=== PATIENT | female | born 1970 | race Caucasian/White ===

== ENCOUNTER → 2018-06-09 | Outpatient (CLI) | payer BC ==
--- NOTE | 2018-06-13 13:57 | MM ---
Reason for exam: clinical finding. Last mammogram was performed 1 year ago. History: Patient has history of other cancer at age 38. Took hormonal contraceptives for 6 months beginning at age 29. Physical Findings: Nurse did not find any significant physical abnormalities on exam. MG 3D Diag Mammo W/Cad NATASHA Bilateral CC and MLO view(s) were taken. Prior study comparison: June 11, 2017, mammogram, performed at . The breast tissue is heterogeneously dense. This may lower the sensitivity of mammography. Spiculated density inner upper left breast 6cm from nipple. This finding is changed when compared with previous exams. These results were verbally communicated with the patient on 06/13/18. ASSESSMENT: Incomplete: need additional imaging evaluation, BI-RAD 0 RECOMMENDATION: Special view mammogram of the left breast. If lesion persists on supplemental views, image directed ultrasound is recommended. [facility] will attempt to contact patient to return for supplemental views and ultrasound if indicated.
== END | disposition home or self-care (01) ==
LOC: RADMAMWWP 07:57
PROVIDERS: ATTEND Obstetrics & Gynecology
DX: N64.4 Mastodynia (principal)
CPT/HCPCS: 77062; 77066

== ENCOUNTER → 2018-06-22 | Outpatient (CLI) | payer BC ==
--- NOTE | 2018-06-23 09:40 | MM ---
Reason for exam: additional evaluation requested from abnormal screening. Last mammogram was performed less than 1 month ago. History: Patient has history of other cancer at age 38. Took hormonal contraceptives for 6 months beginning at age 29. Physical Findings: Nurse did not find any significant physical abnormalities on exam. MG 3D Follow Up No Charge LT Spot compression CC, spot compression MLO, and LM view(s) were taken of the left breast. Prior study comparison: June 09, 2018, bilateral MG 3d diag mammo w/cad NATASAH. June 11, 2017, mammogram, performed at [facility]. There is no discrete abnormality including area of concern. These results were verbally communicated with the patient and result sheet given to the patient on 06/22/18. ASSESSMENT: Probably benign, BI-RAD 3 RECOMMENDATION: Follow-up diagnostic mammogram of the left breast in 6 months.
== END | disposition home or self-care (01) ==
LOC: RADMAMWWP 07:05
PROVIDERS: ATTEND Obstetrics & Gynecology
DX: Z53.9 Procedure and treatment not carried out, unspecified reason (principal)

== ENCOUNTER → 2023-02-24 | Outpatient (CLI) | payer BC ==
--- NOTE | 2023-02-24 16:15 | XR ---
EXAMINATION TYPE: XR skull complete DATE OF EXAM: 02/24/2023 4:05 PM INDICATION: Patient age:Female; 52 years old; Reason for study: M25.461; COMPARISON: None. TECHNIQUE: Right views of the skull. FINDINGS: No evidence to suggest radiopaque foreign body. Soft tissues and osseous structures are within norm al limits. IMPRESSION: No evidence of radiopaque foreign body. Consider CT facial bones for further evaluation if there diaz ins concern.
== END | disposition home or self-care (01) ==
LOC: LABWHC1 15:33
PROVIDERS: ATTEND Physician Assistant
DX: M25.461 Effusion, right knee (principal); M23.306 Other meniscus derangements, unspecified meniscus, right knee
CPT/HCPCS: 70260

== ENCOUNTER 2024-08-19 21:41 | Emergency (ER) | payer BC ==
--- NOTE | 2024-08-19 22:05 | ED ---
Lower Extremity Injury HPI - General Source: patient, RN notes reviewed Mode of arrival: wheelchair Limitations: no limitations - History of Present Illness MD Complaint: ankle injury, foot injury Onset/Timin -: hour(s) Time: 19:00 Injury: Ankle: Right, Foot: Right <Joaquin Hood - Last Filed: 08/19/24 22:03> <Olayinka Salmeron - Last Filed: 08/20/24 20:47> - General Stated Complaint: RT ankle pain Time Seen by Provider: 08/19/24 21:56 - History of Present Illness Initial Comments: Quick note: This is a 54-year-old female presenting with right ankle injury/pain (01/30) at 1900 today. Patient states she jumped out of a van, "tweaking her ankle" but not causing her severe headache and pain until later in the day and she began having worsening lateral ankle and heel pain. Patient states she is having significant pain and difficulty supporting weight on affected foot. Denies striking head, loss of consciousness, headache or other injuries. (Joaquin Hood) 54-year-old female with right ankle pain. States that today she was getting out of her van when she jumped and "tweaked her ankle". Patient states that later on when she got home she noticed she was having a great deal of ankle pain particularly to the lateral portion. Pain is worse with weightbearing and ambulating. She denies any other injuries. No numbness tingling or weakness. (Olayinka Salmeron) - Related Data Allergies Allergy/AdvReac Type Severity Reaction Status Date / Time No Known Allergies Allergy Verified 08/19/24 22:12 Review of Systems ROS Other: All systems not noted in ROS Statement are negative. <Joaquin Hood - Last Filed: 08/19/24 22:03> ROS Other: All systems not noted in ROS Statement are negative. <Olayinka Salmeron - Last Filed: 08/20/24 20:47> ROS Statement: Those systems with pertinent positive or pertinent negative responses have been documented in the HPI. General Exam <Joaquin Hood - Last Filed: 08/19/24 22:03> General appearance: alert, in no apparent distress Head exam: Present: atraumatic, normocephalic, normal inspection Eye exam: Present: normal appearance, EOMI Neck exam: Present: normal inspection. Absent: meningismus Respiratory exam: Absent: respiratory distress Cardiovascular Exam: Present: regular rate Right Ankle exam: Present: full ROM, tenderness, swelling Neurovascular tendon exam: Present: no vascular compromise Neurological exam: Present: alert, oriented X3 Psychiatric exam: Present: normal affect, normal mood Skin exam: Present: warm, dry, normal color <Olayinka Salmeron - Last Filed: 08/20/24 20:47> - General Exam Comments Initial Comments: Visual Physical Exam Vital signs reviewed General: Well-appearing, nontoxic, no acute distress. Patient seated in wheelchair Head: Normocephalic, atraumatic Eyes: PERRLA, EOMI ENT: Airway patent Chest: Nonlabored breathing Skin: No visual rash, normal skin tone Neuro: Alert and oriented 3 Musculoskeletal: No gross abnormalities. Patient holding ice pack to right lateral ankle (Joaquin Hood) Course Vital Signs 08/19/24 22:08 Temperature 98.3 F Pulse Rate 99 Respiratory 16 Rate Blood Pressure 113/78 O2 Sat by Pulse 95 Oximetry Medical Decision Making <Joaquin Hood - Last Filed: 08/19/24 22:03> <Olayinka Salmeron - Last Filed: 08/20/24 20:47> - Medical Decision Making I completed the quick note portion of this chart signed KILEY Cotter (Joaquin Hood) Was pt. sent in by a medical professional or institution (CHINTAN Araiza, MEDICAL DATA ENTRY CLERK, urgent care, hospital, or penitentiary...) When possible be specific @ -No Did you speak to anyone other than the patient for history (EMS, parent, family, police, friend...)? What history was obtained from this source @ -No Did you review nursing and triage notes (agree or disagree)? Why? @ -I reviewed and agree with nursing and triage notes Were old charts reviewed (outside hosp., previous admission, EMS record, old EKG, old radiological studies, urgent care reports/EKG's, penitentiary records)? Report findings @ -No old charts were reviewed Differential Diagnosis (chest pain, altered mental status, abdominal pain women, abdominal pain men, vaginal bleeding, weakness, fever, dyspnea, syncope, headache, dizziness, GI bleed, back pain, seizure, CVA, palpatations, mental health, musculoskeletal)? @ -Not applicable EKG interpreted by me (3pts min.). @ -As above X-rays interpreted by me (1pt min.). @ -X-ray shows no evidence of acute fracture. Soft tissue swelling most pronounced over the lateral malleolus CT interpreted by me (1pt min.). @ -None done U/S interpreted by me (1pt. min.). @ -None done What testing was considered but not performed or refused? (CT, X-rays, U/S, labs)? Why? @ -None What meds were considered but not given or refused? Why? @ -None Did you discuss the management of the patient with other professionals ( professionals i.e. , PA, MEDICAL DATA ENTRY CLERK, lab, RT, psych nurse, family welfare social work professor, coal wheeler, teacher, welfare officer, complex case manager)? Give summary @ -No Was smoking cessation discussed for >3mins.? @ -No Was critical care preformed (if so, how long)? @ -No Were there social determinants of health that impacted care today? How? (Homelessness, low income, unemployed, alcoholism, drug addiction, transportation, low edu. Level, literacy, decrease access to med. care, [facility], rehab)? @ -No Was there de-escalation of care discussed even if they declined (Discuss DNR or withdrawal of care, Hospice)? DNR status @ -No What co-morbidities impacted this encounter? (DM, HTN, Smoking, COPD, CAD, Cancer, CVA, ARF, Chemo, Hep., AIDS, mental health diagnosis, sleep apnea, morbid obesity)? @ -None Was patient admitted / discharged? Hospital course, mention meds given and route, prescriptions, significant lab abnormalities, going to OR and other pertinent info. @ -54-year-old female presenting with chief complaint of right ankle injury. X-rays negative for fracture or dislocation. She is neurovascularly intact. Educated on today's findings and supportive management. She has crutches at home that she will use as needed. Follow-up with PCP. Report back to ER with any new or worsening symptoms. Discussed return parameters and answered all questions. Patient conveyed verbal understanding and agreed to the plan. I discussed this case in detail with my attending Dr. Barnhart Undiagnosed new problem with uncertain prognosis? @ -No Drug Therapy requiring intensive monitoring for toxicity (Heparin, Nitro, Insulin, Cardizem)? @ -No Were any procedures done? @ -No Diagnosis/symptom? @ -Ankle sprain Acute, or Chronic, or Acute on Chronic? @ -Acute Uncomplicated (without systemic symptoms) or Complicated (systemic symptoms)? @ -Uncomplicated Side effects of treatment? @ -No Exacerbation, Progression, or Severe Exacerbation? @ -No Poses a threat to life or bodily function? How? (Chest pain, USA, NM, pneumonia, PE, COPD, DKA, ARF, appy, cholecystitis, CVA, Diverticulitis, Homicidal, Suicidal, threat to staff... and all critical care pts) @ -No (Olayinka Salmeron) Disposition <Joaquin Hood - Last Filed: 08/19/24 22:03> Is patient prescribed a controlled substance at d/c from ED?: No Time of Disposition: 23:13 <Olayinka Salmeron - Last Filed: 08/20/24 20:47> Clinical Impression: Ankle sprain Disposition: HOME SELF-CARE Condition: Good Instructions (If sedation given, give patient instructions): Ankle Sprain (ED) Additional Instructions: Follow-up with PCP. Report back to ER with any new or worsening symptoms. Motrin and Tylenol as needed. Rest, ice, compress, elevate the ankle. Referrals: Calderon Dey MD [Primary Care Provider] - 1-2 days
[2024-08-19 22:12] VITALS: BP 113/78; PULSE 99; RESP 16; TEMP 98.3
--- NOTE | 2024-08-19 22:55 | XR ---
EXAMINATION TYPE: XR foot complete RT, XR ankle complete RT DATE OF EXAM: 08/19/2024 10:20 PM INDICATION: Patient age:Female; 54 years old; Reason for study: Jump injury, unable to bear weight; PHH. pain COMPARISON: None TECHNIQUE: The right foot and right ankle was examined in the AP, oblique, and lateral projections. FINDINGS: No evidence of any acute osseous pathology. Well-corticated 2 mm ossification abutting the medial mal leolus likely related to prior injury or accessory ossicle. Soft tissue swelling most pronounced over the lateral malleolus. No evidence of soft tissue swelling. Joints are preserved. Incidental note is made of symphalangism of the fifth distal interphalangeal joint. Tiny plantar calcaneal enthesophyte . IMPRESSION: 1. No evidence of acute fracture. 2. Soft tissue swelling most pronounced over the lateral malleolus. [facility], , 08/19/2024 10:51 PM
== END 2024-08-20 01:29 | disposition home or self-care (01) ==
LOC: EC 21:41
DX: S93.401A Sprain of unspecified ligament of right ankle, initial encounter (principal); W17.89XA Other fall from one level to another, initial encounter
CPT/HCPCS: 99283